=== PATIENT | male | born 1980 | race Caucasian/White ===

== ENCOUNTER 2022-06-24 11:02 | Emergency (ER) | payer BC ==
[2022-06-24] MEDS ORDERED: Bacitracin Oint 1 GM U/D Packet TOP ONE (11:12)
[2022-06-24] MEDS ORDERED: Diphtheria,Pertussis(Acell),Tetanus Vaccine 0.5 ML Syringe IM ONE (11:12)
[2022-06-24] MEDS ORDERED: Lidocaine 1% PF 2 ML SDV INJECT ONE (11:12)
== END 2022-06-24 12:06 | disposition home or self-care (01) ==
LOC: MW.ED 11:02
DX: S51.812A Laceration without foreign body of left forearm, initial encounter (principal); Z23 Encounter for immunization; W26.8XXA Contact with other sharp object(s), not elsewhere classified, initial encounter
CPT/HCPCS: 12001; 90471; 90715; 99282-25